=== PATIENT | male | born 1965 | race Caucasian/White ===

== ENCOUNTER 2016-12-17 07:00 | Day surgery (SDC) | payer OTHER ==
[~2016-12-17] VITALS: Ht 182.9 cm; Wt 122.5 kg
[~2016-12-17 07:00] MED LIST: 0.9% Sodium Chloride 1,000 ML IV SCH; HYG25 PO; LISI40TA PO; Sodium Chloride LOK Flush 10 mL Syringe IV PRN; fentaNYL-PF 50 mCg/mL 2 mL Inj IVPUSH PRN
[2016-12-17 07:45] VITALS: BP 137/90; PULSE 97; RESP 17; O2SAT 92
[2016-12-17 08:19] VITALS: BP 130/71; PULSE 80; RESP 14; O2SAT 97
[2016-12-17 08:28] VITALS: BP 117/78; PULSE 77; RESP 14; O2SAT 98
--- NOTE | 2016-12-17 09:09 | ENDO ---
[address] [address] ENDOSCOPY PROCEDURE PATIENT: GUCCI CAN : 1965 MR#: [id number] ADMIT: 12/17/2016 JOB ID: [id number] DATE: 12/17/2016 PROCEDURE: Colonoscopy. INDICATION: Screening. The patient's ASA classification is 2. Mallampati score is 2. MEDICATIONS: 1. Versed 5 mg. 2. Fentanyl 100 mcg. INSTRUMENT USED: PCF H 180 AL. PREPARATION QUALITY: Was fair. PROCEDURE DETAILS: After informed consent was obtained, the patient was brought into the GI suite, where he was placed on oxygen via nasal cannula and monitored with continuous pulse oximeter, telemetry and blood pressure monitoring. A time-out was performed. Then, he was placed in the left lateral decubitus position and medications were administered for sedation. Digital rectal examination was performed, which was limited secondary to patient's body habitus. I was unable to palpate the prostate, but rectal tone was normal. I did not feel any anal abnormalities. The colonoscope was then inserted into the rectum and advanced under direct visualization to the cecum, which identified by the presence of the ileocecal valve and appendiceal orifice. Once the cecum was reached, the colonoscope was withdrawn back into the rectum as mucosa and lumen were examined. In the rectum, retroflexion was performed. Following retroflexion, remaining air in the rectum was suctioned, and the procedure was completed. FINDINGS: 1. In the cecum there was an approximately 4 mm sessile polyp that was removed with a cold snare. 2. In the descending colon, there was a diminutive polyp that was removed with cold biopsy forceps. 3. Scattered diverticula are seen throughout the left side of the colon. IMPRESSION: 1. Cecal polyp. 2. Descending colon polyp. 3. Left-sided diverticulosis. RECOMMENDATIONS: 1. Repeat colonoscopy in five years. 2. Fiber rich diet. 3. Followup in GI clinic as needed. COMPLICATIONS: None. ESTIMATED BLOOD LOSS: Less than 5 mL.
--- NOTE | 2016-12-20 13:59 | PATH ---
SURGICAL PATHOLOGY Attending Physician:Chantel Osborn CASE STATUS: Signed Out PATIENT NAME: GUCCI CAN PID: [id number] : 1965 DATE COLLECTED:12/17/2016 18:59 SPECIMEN: 1: Colon, Biopsy 2: Colon, Biopsy CLINICAL HISTORY: 1). CECAL POLYP 2). 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 2.DESCENDING COLON POLYP: CHANGES CONSISTENT WITH HYPERPLASTIC POLYP INVOLVING SINGLE BIOPSY FRAGMENT. ICD10 CODE D12.0 GROSS DESCRIPTION: Received are two formalin-filled containers, both labeled with the patient' s name: 1. Received in formalin, labeled with the patient' s name and "cecal polyp", are multiple fragments of orourke, soft tissue ranging in size from 0.1 x 0.1 x 0.1 cm to 0.2 x 0.1 x 0.1 cm. All fragments are totally submitted in cassette 1A. 2. Received in formalin, labeled with the patient' s name and "descending polyp", are three fragments of orourke, soft tissue ranging in size from less than 0.1 cm by less than 0.1 cm by less than 0.1 cm to 0.1 x 0.1 x 0.1 cm. All fragments are totally submitted in cassette 2A. ([id number]) MICRO DESCRIPTION: See diagnosis. ICD-9 CODES: CPT CODES: 1: 68422 2: 67116 Electronically Signed Out Nigel Ruiz MD [facility] [address], [place] [address] Technical component performed at [facility], [address], [place], [address]
== END 2016-12-17 23:59 | disposition home or self-care (01) ==
LOC: END 07:00
PROVIDERS: ATTEND Internal Medicine Gastroenterology
DX: Z12.11 Encounter for screening for malignant neoplasm of colon (principal); Z80.0 Family history of malignant neoplasm of digestive organs; D12.0 Benign neoplasm of cecum; K63.5 Polyp of colon; K57.30 Diverticulosis of large intestine without perforation or abscess without bleeding; I10 Essential (primary) hypertension; E78.00 Pure hypercholesterolemia, unspecified; E66.01 Morbid (severe) obesity due to excess calories; Z68.41 Body mass index [BMI] 40.0-44.9, adult
CPT/HCPCS: 45380; 45385; 88305; G0500; J7030